=== PATIENT | male | born 1945 | race Hispanic/Latino ===

== ENCOUNTER 2018-06-05 07:38 | Observation (INO) | payer MEDICARE ==
[2018-05-30 10:40] LABS: Basophils # (Auto) 0.1 K/mm3 (0.0-0.1); Basophils % (Auto) 1.2 % (0.0-1.8); Eosinophils # (Auto) 0.1 K/mm3 (0.0-0.4); Eosinophils % (Auto) 1.2 % (0.0-4.3); Hematocrit 43.3 % (35.5-45.6); Hemoglobin 14.5 gm/dl (11.8-15.2); Lymphocytes # (Auto) 2.8 K/mm3 (1.2-5.4); Lymphocytes % (Auto) 30.3 % (13.4-35.0); Mean Corpuscular HGB Conc 34 % (32-34); Mean Corpuscular Hemoglobin 33 pg (28-32); Mean Corpuscular Volume 97 fl (84-94); Monocytes # (Auto) 0.8 K/mm3 (0.0-0.8); Monocytes % (Auto) 8.9 % (0.0-7.3); Platelet Count 234 K/mm3 (140-440); Red Blood Count 4.46 M/mm3 (3.65-5.03)
[2018-05-30 10:52] LABS: Alanine Aminotransferase 18 units/L (7-56); Albumin 3.9 g/dL (3.9-5); BUN/Creatinine Ratio 22; Blood Urea Nitrogen 13 mg/dL (9-20); Calcium 8.9 mg/dL (8.4-10.2); Hemolysis Index 14
[2018-05-30 10:53] LABS: INR 0.92 (0.87-1.13)
[2018-05-30 10:54] LABS: Partial Thromboplastin Time 24.4 Sec. (24.2-36.6)
--- NOTE | 2018-05-30 13:33 | Anesthesia Consultation ---
Anesthesia Consult and Med Hx Date of service: 05/30/18 - Airway Anesthetic Teeth Evaluation: Good ROM Head & Neck: Inadequate (mildly restricted extension) Mental/Hyoid Distance: Adequate Mallampati Class: Class I Intubation Access Assessment: Probably Good - Pulmonary Exam CTA: Yes - Cardiac Exam Cardiac Exam: RRR - Pre-Operative Health Status ASA Pre-Surgery Classification: ASA2 Proposed Anesthetic Plan: General - Pulmonary Hx Smoking: Yes (40pk yr hx; wuit 10 yrs ago) Hx Asthma: No Hx Respiratory Symptoms: No COPD: No Hx Sleep Apnea: No (ANUJA PRE SCREEN HIGH RISK) - Cardiovascular System Hx Hypertension: No (HLD) Hx Heart Attack/AMI: No - Central Nervous System Hx Seizures: No CVA: No - Gastrointestinal Hx Gastroesophageal Reflux Disease: No - Endocrine Hx Renal Disease: No (BPH) Hx Liver Disease: No Hx Insulin Dependent Diabetes: No Hx Thyroid Disease: No - Other Systems Hx Alcohol Use: Yes (MIXED DRINK QHS) Hx Cancer: Yes (Hx Skin Ca, Hx Bladder Ca) - Additional Comments Anesthesia Medical History Comments: No hx anesthetic complications. >4mets exercise tolerance.
[~2018-06-05 07:38] MED LIST: ANCEF/STERILE WATER 2 GM/20 ML IV NR; ZOFRAN IV NR
[2018-06-05] MEDS: NACL 0.9% 1000 ML 1,000 ML IV SCH ×2 (08:45→15:48)
[2018-06-05] MEDS ORDERED: DEMEROL IV PRN (09:00)
[2018-06-05] MEDS ORDERED: VERSED IV NR (09:00)
[2018-06-05] MEDS ORDERED: MORPHINE IV PRN ×3 (09:00→11:43)
[2018-06-05] MEDS ORDERED: TYLENOL PO PRN (09:00)
[2018-06-05] MEDS ORDERED: ZOFRAN IV PRN (09:00)
[2018-06-05] MEDS ORDERED: NARCAN 0.4 MG/1 ML IV PRN ×2 (09:00→11:43)
[2018-06-05] MEDS ORDERED: PEPCID IV NR (09:00)
--- NOTE | 2018-06-05 09:03 | Anesthesia Day of Surgery ---
Anesthesia Day of Surgery - Day of Surgery Patient Examined: Yes Patient H&P Reviewed: Yes Patient is NPO: Yes
[2018-06-05] MEDS ORDERED: XYLOCAINE MPF 2% ONE (10:22)
[2018-06-05] MEDS ORDERED: DIPRIVAN 10 MG/ML IV ONE (10:22)
[2018-06-05] MEDS ORDERED: DILAUDID ONE (10:24)
[2018-06-05] MEDS ORDERED: DECADRON ONE (10:47)
[2018-06-05] MEDS ORDERED: ZOFRAN ONE (10:47)
[2018-06-05] MEDS ORDERED: SORBITOL-MANNITOL IRRIG IR ONE (11:30)
[2018-06-05] MEDS ORDERED: NACL 0.9% 1000 ML 1,000 ML ONE (11:30)
--- NOTE | 2018-06-05 11:38 | Short Stay Summary ---
Short Stay Documentation Date of service: 06/05/18 - History H&P: obtained from office - Allergies and Medications Current Medications: Allergies No Known Allergies Allergy (Verified 05/24/18 13:23) Home Medications Medication Instructions Recorded Confirmed Last Taken Type Aspirin [Aspir-Low] 81 mg PO DAILY 05/24/18 06/05/18 8 Days Ago History ~05/28/18 Atorvastatin [Lipitor Tab] 40 mg PO QHS 05/24/18 05/24/18 06/04/18 History Dutasteride [Avodart] 0.5 mg PO DAILY 05/24/18 05/24/18 06/04/18 History Tamsulosin HCl [Flomax] 0.4 mg PO DAILY 05/24/18 05/24/18 06/04/18 History Active Medications Acetaminophen (Tylenol) 650 mg PO ONCE PRN PRN Reason: Pain, Mild (1-3) Stop: 06/05/18 15:00 Cefazolin Sodium (Ancef/Sterile Water 2 Gm/20 Ml) 2 gm IV PREOP NR Stop: 06/05/18 23:59 Famotidine (Pepcid) 20 mg IV PREOP NR Stop: 06/05/18 15:00 Last Admin: 06/05/18 09:11 Dose: 20 mg Sodium Chloride (Nacl 0.9% 1000 Ml) 1,000 mls @ 100 mls/hr IV DIRECT [place] Last Admin: 06/05/18 08:45 Dose: 100 mls/hr Meperidine HCl (Demerol) 12.5 mg IV ONCE PRN PRN Reason: Shivering Stop: 06/05/18 15:00 Midazolam HCl (Versed) 1 mg IV PREOP NR Stop: 06/05/18 15:00 Last Admin: 06/05/18 09:11 Dose: 1 mg Morphine Sulfate (Morphine) 2 mg IV Q10MIN PRN PRN Reason: Pain, Moderate (4-6) Stop: 06/05/18 20:00 Morphine Sulfate (Morphine) 4 mg IV Q10MIN PRN PRN Reason: Pain , Severe (7-10) Stop: 06/05/18 20:00 Naloxone HCl (Narcan 0.4 Mg/1 Ml) 0.1 mg IV Q2MIN PRN PRN Reason: Res Rate </= 8 or 02 SAT < 92% Ondansetron HCl (Zofran) 4 mg IV ONCE PRN PRN Reason: Nausea And Vomiting Stop: 06/05/18 15:00 - Brief post op/procedure progress note Date of procedure: 06/05/18 Pre-op diagnosis: bph, retention Post-op diagnosis: same Procedure: cysto, turp Anesthesia: GETA Surgeon: JATIN LYNN Estimated blood loss: minimal Pathology: list (prostate chips) Specimen disposition: to lab Condition: stable - Hospital course Hospital course: bactrim & norco on chart at bedside pearson clear taught how to remove at home (pearson) - Disposition Condition at discharge: Stable Short Stay Discharge Plan Follow up with: DANIEL TARANGO MD [Primary Care Provider] - 7 Days
[2018-06-05] MEDS ORDERED: NORCO 5/325 PO PRN (11:43)
[2018-06-05] MEDS ORDERED: AMBIEN PO PRN (11:43)
--- NOTE | 2018-06-05 12:12 | Operative Report ---
PREOPERATIVE DIAGNOSES: Urinary retention, benign prostatic hypertrophy. POSTOPERATIVE DIAGNOSES: Urinary retention, benign prostatic hypertrophy. PROCEDURE: Cystoscopy, right retrograde pyelogram, urethral dilatation for stricture, transurethral resection of the prostate. SURGEON: Maik Hart MD ANESTHESIA: General. ESTIMATED BLOOD LOSS: Minimal. FLUIDS: Crystalloid. COMPLICATIONS: No complications. INDICATIONS: This patient is a 72-year-old gentleman known to my service for years for BPH. He has been on medical management, developed urinary retention, failed medical management. Urodynamic testing revealed a peak flow of 3 mL postvoid residual of 380 mL. Discussed options, the patient agreed to proceed with surgical intervention. DESCRIPTION OF PROCEDURE: The patient was taken to the operative suite, placed in a supine position. After adequate general anesthesia, placed in a dorsal lithotomy position, prepped and draped in a sterile fashion. Pancystourethroscopy was performed with a 22-Bulgarian Storz cystoscope. Pancystourethroscopy revealed mild bulbar stricture that was dilated to 28-Bulgarian. Cystoscopy revealed bilobar obstruction. No tumors or stones were noted. He does have some diffuse trabeculation, was not able to visualize the left ureteral orifice. Right retrograde pyelogram was obtained with an 8 Bulgarian Beaumont catheter and 8 mL of contrast. No filling defects or obstruction. Next, using 27-Bulgarian resectoscope and loop with the cutting and coag on 180 and 60 transurethral resection of the prostate was performed with a systematic fashion, taken on the right and left lateral lobes. He had a small median lobe was removed as well. The chips were evacuated out. Adequate hemostasis was achieved. Upon completion external sphincter was intact. His rectal exam was benign. A 22-Bulgarian 3-way catheter, irrigated well. Chips were out. He was taken to recovery room in stable condition. JOB# [id number] [facility]
[2018-06-05] MEDS ORDERED: LACTATED RINGERS 1,000 ML IV SCH (12:20)
[2018-06-05] MEDS ORDERED: APRESOLINE ONE (12:25)
[2018-06-05] MEDS: APRESOLINE IV PRN (12:26)
[2018-06-05] MEDS ORDERED: NACL 0.9% 1,000 ML IR ONE (12:47)
--- NOTE | 2018-06-05 14:50 | Fluoroscopy Report ---
FLUOROSCOPY RETROGRADE UROGRAPHY: HISTORY: Retention of urine. FINDINGS: Fluoroscopy was provided by radiology during retrograde urography by the urologist. 7 fluoroscopic images were captured. There is adequate filling of the right ureter and intrarenal collecting system with no filling defects or anatomic abnormalities identified. The left pyelogram was not performed. Please correlate with the procedural report if needed. IMPRESSION: Right retrograde pyelogram within normal limits.
[2018-06-05] MEDS: ANCEF/NS 1 GM/50 ML 1 GM/50 ML BAG IV SCH ×2 (15:42→23:52)
--- NOTE | 2018-06-05 20:19 | Post Anesthesia Evaluation ---
- Post Anesthesia Evaluation Patient Participated: Yes Airway Patent: Yes Stable Respiratory Function: Yes Nausea/Vomiting: No Temp > 96.8F: Yes Pain Manageable: Yes Adequeate Hydration: Yes Anesthesia Complications: No Block Receding Appropriately: Not Applicable Patient on Ventilator: No
[2018-06-05] MEDS ORDERED: NACL 0.9% IR ONE (21:01)
[2018-06-05] MEDS: NACL 0.9% IR SCH (21:36)
[2018-06-06] MEDS: NACL 0.9% IR SCH ×4 (00:03→06:01)
[2018-06-06 05:26] LABS: Basophils % (Auto) 0.2 % (0.0-1.8); Hematocrit 36.9 % (35.5-45.6); Hemoglobin 12.2 gm/dl (11.8-15.2); Lymphocytes % (Auto) 15.9 % (13.4-35.0); Mean Corpuscular HGB Conc 33 % (32-34); Mean Corpuscular Hemoglobin 32 pg (28-32); Mean Corpuscular Volume 98 fl (84-94); Platelet Count 225 K/mm3 (140-440); Red Blood Count 3.77 M/mm3 (3.65-5.03); Red Cell Distribution Width 15.6 % (13.2-15.2)
[2018-06-06 05:51] LABS: BUN/Creatinine Ratio 13; Blood Urea Nitrogen 8 mg/dL (9-20); Calcium 8.3 mg/dL (8.4-10.2); Hemolysis Index 1
[2018-06-06] MEDS: APRESOLINE IV PRN (08:48)
[2018-06-06 09:55] VITALS: BP 162/78
== END 2018-06-06 11:01 | disposition home or self-care (01) ==
LOC: OR 07:38 → 3B-SURG 11:43
PROVIDERS: ADMIT Urology; ATTEND Urology
DX: R33.9 Retention of urine, unspecified (principal); N40.1 Benign prostatic hyperplasia with lower urinary tract symptoms
CPT/HCPCS: 36415; 52601; 74420; 80048; 80053; 85025; 85610; 85730; 86850; 86900; 86901; 88305; 94760; 96365; 96366; 96375; 96376; A4217; G0378; J0360; J0690; J1100; J1170; J2250; J2405; J2704; J7030; J7120; Q9967

== ENCOUNTER 2021-03-18 07:50 | Day surgery (SDC) | payer MEDICARE ==
[2021-03-16 10:36] LABS: Hematocrit 41.9 % (35.5-45.6); Hemoglobin 14.3 gm/dl (11.8-15.2); Mean Corpuscular HGB Conc 34 % (32-34); Mean Corpuscular Volume 99 fl (84-94); Platelet Count 252 K/mm3 (140-440); Red Blood Count 4.25 M/mm3 (3.65-5.03); Red Cell Distribution Width 13.4 % (13.2-15.2)
[2021-03-16 10:56] LABS: Alanine Aminotransferase 16 units/L (7-56); Albumin 4.2 g/dL (3.9-5); BUN/Creatinine Ratio 16; Blood Urea Nitrogen 13 mg/dL (9-20); Calcium 9.3 mg/dL (8.4-10.2); Hemolysis Index 6
[~2021-03-18 07:50] MED LIST changes: +ACETAMINOPHEN 500 MG TAB PO SCH; -ANCEF/STERILE WATER 2 GM/20 ML IV NR; +LACTATED RINGERS 1,000 ML IV SCH; -ZOFRAN IV NR; +ceFAZolin/STERILE WATER 2 GM/20 ML SYRINGE IV NR
--- NOTE | 2021-03-18 08:46 | Anesthesia Consultation ---
Anesthesia Consult and Med Hx Date of service: 03/18/21 - Airway Anesthetic Teeth Evaluation: Good ROM Head & Neck: Adequate Mental/Hyoid Distance: Adequate Mallampati Class: Class II Intubation Access Assessment: Probably Good (previous LMA 5) - Pre-Operative Health Status ASA Pre-Surgery Classification: ASA2 Proposed Anesthetic Plan: General - Pulmonary Hx Smoking: Yes (quit 15yrs ago) Hx Respiratory Symptoms: No Hx Sleep Apnea: No (ANUJA PRE SCREEN HIGH RISK) - Cardiovascular System Hx Hypertension: Yes Hx Heart Attack/AMI: No Hx Percutaneous Transluminal Coronary Angioplasty (PTCA): No Hx Cardia Arrhythmia: No - Central Nervous System CVA: No - Endocrine Hx Renal Disease: No Hx Liver Disease: No Hx Insulin Dependent Diabetes: No Hx Non-Insulin Dependent Diabetes: No Hx Thyroid Disease: No - Other Systems Hx Obesity: No - Additional Comments Anesthesia Medical History Comments: No hx anesthetic complications.
--- NOTE | 2021-03-18 08:46 | Anesthesia Day of Surgery ---
Anesthesia Day of Surgery - Day of Surgery Patient Examined: Yes Patient H&P Reviewed: Yes Patient is NPO: Yes
[2021-03-18] MEDS ORDERED: HYDROcodone/ACETAMINOPHEN 5-325 MG TAB PO PRN (09:00)
[2021-03-18] MEDS ORDERED: HYDROmorphone 1 MG/1 ML INJ IV PRN (09:00)
[2021-03-18] MEDS ORDERED: ONDANSETRON 4 MG/2 ML INJ IV PRN (09:00)
[2021-03-18] MEDS ORDERED: dexAMETHasone 20 MG/5 ML VIAL ONE (09:57)
[2021-03-18] MEDS ORDERED: LIDOCAINE PF 100 MG/5 ML (CARDIAC SYRINGE) IV ONE (09:58)
[2021-03-18] MEDS ORDERED: ONDANSETRON 4 MG/2 ML INJ ONE (09:58)
[2021-03-18] MEDS ORDERED: fentaNYL 100 MCG/2 ML INJ ONE (09:58)
[2021-03-18] MEDS ORDERED: propofoL 200 MG/20 ML VIAL IV ONE (09:58)
[2021-03-18] MEDS ORDERED: PHENYLEPHRINE/NS 1,000 MCG/10 ML SYRINGE (OR USE) IV ONE (10:25)
[2021-03-18] MEDS ORDERED: ePHEDrine SULFATE 50 MG/1 ML INJ ONE (10:40)
--- NOTE | 2021-03-18 11:01 | Short Stay Summary ---
Short Stay Documentation Date of service: 03/11/21 - History H&P: obtained from office - Allergies and Medications Current Medications: Allergies No Known Allergies Allergy (Verified 05/24/18 13:23) Home Medications Medication Instructions Recorded Confirmed Last Taken Type Aspirin [Aspir-Low] 81 mg PO DAILY 05/24/18 03/18/21 1 Week Ago History ~03/11/21 Atorvastatin [Lipitor Tab] 40 mg PO QHS 05/24/18 03/13/21 03/17/21 History Vitamin B12 1 tab PO DAILY 03/13/21 03/13/21 03/17/21 History Vitc/E/Zn/Copper/Lutein/Zeaxan 1 dose PO DAILY 03/13/21 03/13/21 03/17/21 History [Icaps Areds2 Softgel] lisinopriL [Lisinopril] 20 mg PO DAILY 03/13/21 03/13/21 03/17/21 History Active Medications Acetaminophen (Acetaminophen 500 Mg Tab) 1,000 mg PO PREOP [place] Stop: 03/18/21 21:00 Last Admin: 03/18/21 08:55 Dose: 1,000 mg Documented by: Hydrocodone Bitart/Acetaminophen (Hydrocodone/Acetaminophen 5-325 Mg Tab) 2 each PO ONCE PRN PRN Reason: Pain, Moderate (4-6) Stop: 03/18/21 17:00 Cefazolin Sodium (Cefazolin/Sterile Water 2 Gm/20 Ml Syringe) 2 gm IV PREOP NR Stop: 03/18/21 23:00 Hydromorphone HCl (Hydromorphone 1 Mg/1 Ml Inj) 0.5 mg IV Q10MIN PRN PRN Reason: Pain , Severe (7-10) Stop: 03/18/21 17:00 Lactated Ringer's (Lactated Ringers) 1,000 mls @ 100 mls/hr IV DIRECT [place] Stop: 03/18/21 23:59 Last Admin: 03/18/21 09:00 Dose: 100 mls/hr Documented by: Ondansetron HCl (Ondansetron 4 Mg/2 Ml Inj) 4 mg IV ONCE PRN PRN Reason: Nausea And Vomiting Stop: 03/18/21 17:00 - Brief post op/procedure progress note Date of procedure: 03/18/21 Pre-op diagnosis: left hydrocele Post-op diagnosis: same Procedure: hydrocelectomy Anesthesia: GETA Surgeon: JATIN LNYN Pathology: list (sc & skin) Specimen disposition: to lab Condition: stable - Hospital course Hospital course: norco on chart - Disposition Condition at discharge: Stable Disposition: DC-01 TO HOME OR SELFCARE Short Stay Discharge Plan Follow up with: DANIEL TARANGO MD [Primary Care Provider] - 7 Days
--- NOTE | 2021-03-18 11:23 | Operative Report ---
DATE OF SURGERY: 03/18/2021 PREOPERATIVE DIAGNOSIS: Left hydrocele, moderate size. POSTOPERATIVE DIAGNOSIS: Left hydrocele, moderate size. PROCEDURES: Hydrocelectomy and scrotoplasty. SURGEON: Maik Hart MD ANESTHESIA: General. ESTIMATED BLOOD LOSS: Minimal. FLUIDS: Crystalloid. COMPLICATIONS: No complications. INDICATIONS: This patient is a 75-year-old gentleman known to our service with a hydrocele, which has progressively increased in size. It is now about the size of a grapefruit ____ ultrasound, no other abnormalities. Discussed options, he agreed to proceed with surgical intervention. DESCRIPTION OF PROCEDURE: The patient was taken to the operative suite, placed in a supine position. After adequate general anesthesia, he was prepped and draped in a sterile fashion. Scrotal skin was marked to excise part of the redundant skin. Wedge incision was made as well as removing the hydrocele sac. Serosanguineous fluid was removed. The sac and skin was sent for routine pathologic evaluation. Adequate hemostasis achieved. Remnant sac was closed with 2-0 chromic in a running fashion. Dartos layer was closed with 2-0 chromic in interrupted fashion. 1/2-inch Giuseppe drain was brought out through a separate stab incision. The skin was closed with 2-0 chromic in interrupted fashion. The patient tolerated the procedure well and was extubated and taken to recovery room. TID: [id number] RECEIPT: [id number] JENIFFER/NANI
[2021-03-18 11:50] VITALS: BP 142/69
--- NOTE | 2021-03-18 12:32 | Post Anesthesia Evaluation ---
- Post Anesthesia Evaluation Patient Participated: Yes Airway Patent: Yes Stable Respiratory Function: Yes Nausea/Vomiting: No Temp > 96.8F: Yes Pain Manageable: Yes Adequeate Hydration: Yes Anesthesia Complications: No
== END 2021-03-18 07:51 | disposition home or self-care (01) ==
LOC: OR 07:50
PROVIDERS: ATTEND Urology
DX: N43.2 Other hydrocele (principal); Z20.822 Contact with and (suspected) exposure to COVID-19; Z79.899 Other long term (current) drug therapy; Z79.82 Long term (current) use of aspirin; Z87.891 Personal history of nicotine dependence; E78.00 Pure hypercholesterolemia, unspecified; I10 Essential (primary) hypertension; N50.89 Other specified disorders of the male genital organs; Z87.440 Personal history of urinary (tract) infections; Z98.890 Other specified postprocedural states; Z72.89 Other problems related to lifestyle; Z85.51 Personal history of malignant neoplasm of bladder; Z85.828 Personal history of other malignant neoplasm of skin; Z80.3 Family history of malignant neoplasm of breast; Z80.8 Family history of malignant neoplasm of other organs or systems
CPT/HCPCS: 36415; 55040; 55175; 80053; 85027; 88305; J0690; J1100; J2001; J2370; J2405; J2704; J3010; J7120; U0003; 88302